=== PATIENT | female | born 1955 | race Caucasian/White ===

== ENCOUNTER → 2018-04-01 | Outpatient (CLI) | payer OTHER ==
[~2018-04-01] MED LIST: SIMV-59 PO
--- NOTE | 2018-04-02 09:01 | RADIOLOGY IMAGING REPORT ---
FACILITY: [facility] - [place] PATIENT NAME: DIANA LOZANO : [id number] MR: [id number] V: [id number] EXAM DATE: [id number] ORDERING PHYSICIAN: MATTHEW WILLIS TECHNOLOGIST: Charo De La Cruz PROCEDURE:BILATERAL DIGITAL SCREENING MAMMOGRAM WITH CAD ASSISTED INTERPRETATION & 3D TOMOSYNTHESIS COMPARISON:Prior mammogram 03/15/17, 02/18/16, 01/15/15, 12/26/13, 09/13/12, 06/22/11. INDICATIONS:SCREENING FINDINGS: Moderately heterogeneous fibroglandular tissue is seen throughout the breasts. The parenchymal pattern has remained stable allowing for difference in mammographic technique & patient positioning. There is no evidence of malignant appearing mass, malignant appearing calcifications or other secondary sign of malignancy in either breast. DIAGNOSTIC CATEGORY 1--NEGATIVE. RECOMMENDATIONS: ROUTINE MAMMOGRAM AND CLINICAL EVALUATION. IMPRESSION: BIRADS 1: Negative. No significant abnormality is seen. Dictated by: Mariana Urrutia M.D. on 04/01/2018 at 17:58 Transcribed by: DENNIS on 04/02/2018 at 8:49 Approved by: Mariana Urrutia M.D. on 04/02/2018 at 8:58 [facility]
== END ==
LOC: MAMO 02:19
PROVIDERS: ATTEND Nurse Practitioner Family
DX: Z12.31 Encounter for screening mammogram for malignant neoplasm of breast (principal)
CPT/HCPCS: 77063; 77067

== ENCOUNTER → 2019-05-08 | Outpatient (CLI) | payer OTHER ==
[~2019-05-08] MED LIST changes: +SIMV-117 PO; -SIMV-59 PO
--- NOTE | 2019-05-08 16:04 | RADIOLOGY IMAGING REPORT ---
FACILITY: [facility] - [place] PATIENT NAME: DIANA LOZANO : [id number] MR: [id number] V: [id number] EXAM DATE: [id number] ORDERING PHYSICIAN: MATTHEW WILLIS TECHNOLOGIST: Charo De La Cruz PROCEDURE: BILATERAL DIGITAL SCREENING MAMMOGRAM WITH CAD ASSISTED INTERPRETATION & 3D TOMOSYNTHESIS. REASON FOR STUDY: Screening. COMPARISON: 04/01/18 back to 12/26/13. VIEWS OBTAINED: 2D & 3D full field CC & MLO projections. BREAST DENSITY: Fibroglandular tissue is dense which can obscure small masses. MAMMOGRAM FINDINGS: On the Right MLO view there is a circumscribed 8mm asymmetry located in the posterior aspect of the breast 7cm from the nipple which is only partially captured in the field of view. It can be seen on the 2D image but also noted on Tomographic image 16. It is beyond the field of view on the CC image. The Left breast parenchyma is stable and unchanged and unremarkable in appearance. IMPRESSION: BIRADS 0: Incomplete. DIAGNOSTIC CATEGORY 0--INCOMPLETE: NEED ADDITIONAL IMAGING EVALUATION. RECOMMENDATIONS: ADDITIONAL MAMMOGRAPHIC VIEWS REQUIRED: RIGHT BREAST. RIGHT MEDIAL LATERAL VIEW AND RIGHT MLO SPOT COMPRESSION VIEW. ULTRASOUND TO FOLLOW IF INDICATED BY ADDITIONAL VIEWS. Dictated by: Deshaun Sher M.D. on 05/08/2019 at 13:18 Transcribed by: DENNIS on 05/08/2019 at 14:39 Approved by: Desahun Sher M.D. on 05/08/2019 at 15:59 [facility]
== END ==
LOC: MAMO 00:22
PROVIDERS: ATTEND Nurse Practitioner Family
DX: Z12.31 Encounter for screening mammogram for malignant neoplasm of breast (principal); R92.8 Other abnormal and inconclusive findings on diagnostic imaging of breast
CPT/HCPCS: 77063; 77067